=== PATIENT | female | born 1935 | race Caucasian/White ===

== ENCOUNTER 2017-06-08 19:00 | Emergency (ER) | payer MEDICARE, OTHER ==
[~2017-06-08] VITALS: Ht 160 cm; Wt 72.6 kg
[~2017-06-08 19:00] MED LIST: AMLODIPINE BESYL5 MG PO; BENAZEPRIL HCL40 MG PO; CELEXA 20 MG TA20 MG PO; CELEXA20 MG PO; DOXYCYCLINE 10100 MG PO; DYAZIDE 37.5-21 EACH; FISHOIL; HYDROCODON-ACE1 EAC7 PO; LEVAQUIN 500 M500 M2 PO; MEDROLDOSEPACK PO; MULTIVITAMINS PO; MULTIVITAMINS1 EAC7; NORVASC5 MG PO; PRAVACHOL40 MG PO; PREDNISONE 20 M20 M1 PO; PREDNISONE 5 MG5 MG PO; VENTOLIN HFA 1818 GM INH
[2017-06-08 19:54] LABS: ABSOLUTE BASOPHILS 0.1 thou/uL (0.0-0.2); ABSOLUTE EOSINOPHILS 0.1 thou/uL (0.0-0.7); ABSOLUTE LYMPHOCYTES 1.3 thou/uL (0.8-5.3); ABSOLUTE MONOCYTES 0.8 thou/uL (0.0-1.2); ABSOLUTE NEUTROPHILS 7.8 thou/uL (1.6-8.1); BASOPHILS 0.7 %; HEMATOCRIT 42.5 % (37.0-47.0); HEMOGLOBIN 13.8 gm/dL (12.0-15.0); MCH 26.5 pg (26.0-34.0); MCHC 32.5 g/dL (28.0-37.0); MCV 81.5 fL (80.0-100.0); MONOCYTES 7.6 %; MPV 9.1 fl. (7.2-11.1); NUCLEATED RBCS 0 /100WBC; PLATELET COUNT* 252 thou/uL (150-400); POLYS 77.7 %; RBC 5.22 mil/uL (4.20-5.00); RDW-CV 17.8 % (10.5-14.5)
[2017-06-08 20:04] LABS: CALCIUM 8.6 mg/dL (8.5-10.1); CREATININE 1.1 mg/dL (0.6-1.3); POTASSIUM 3.5 mmol/L (3.5-5.1)
[2017-06-08 20:20] LABS: ALBUMIN 3.7 g/dL (3.4-5.0); TOTAL BILIRUBIN 0.4 mg/dL (<0.1-1.0); TOTAL PROTEIN 7.3 g/dL (6.4-8.2)
[2017-06-08] MEDS ORDERED: PROAIR HFA8.5 GM INH (20:32)
[2017-06-08] MEDS ORDERED: PREDNISONE 20 M20 MG PO (20:32)
[2017-06-08] MEDS ORDERED: ZPAK PO (20:32)
[2017-06-08] MEDS ORDERED: AUGMENTIN 875-1 EACH PO (20:50)
[2017-06-08 21:10] VITALS: BP 156/86
--- NOTE | 2017-06-09 16:06 | EKG ---
[place] [address] ELECTROCARDIOGRAM REPORT Name: HELLENSMITA Room: 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 : 1935 Requested By: Citlaly Melendrez Order Number: [id number] MD: Asaf Nevarez Measurements Intervals [place] Rate: 102 P: 81 VT: 180 QRS: 18 QRSD: 91 T: 32 QT: 352 QTc: 459 Interpretive Statements Sinus tachycardia Compared to ECG 02/16/2016 19:37:55 Left ventricular hypertrophy no longer present Q waves no longer present Electronically Signed On 06-09-2017 16:06:40 CDT by Asaf Nevarez [email or web address] <ELECTRONICALLY SIGNED> By: Asaf Nevarez MD, [facility] 06/09/17 1606 33 33 Asaf Nevarez MD, FAC /EPI
== END 2017-06-08 21:10 | disposition left against medical advice (07) ==
LOC: M.ERS 19:00
PROVIDERS: Physician Assistant
DX: J18.9 Pneumonia, unspecified organism (principal); R09.02 Hypoxemia; I10 Essential (primary) hypertension; E78.00 Pure hypercholesterolemia, unspecified; Z90.710 Acquired absence of both cervix and uterus; Z87.891 Personal history of nicotine dependence

== ENCOUNTER 2019-10-08 15:01 | Emergency (ER) | payer MEDICARE, OTHER ==
[~2019-10-08] VITALS: Ht 157.5 cm; Wt 117.9 kg
[~2019-10-08 15:01] MED LIST changes: +AUGMENTIN 875-1 EACH PO; +PREDNISONE 20 M20 MG PO; +PROAIR HFA8.5 GM INH; +ZPAK PO
[2019-10-08 15:17] VITALS: BP 220/105
[2019-10-08] MEDS ORDERED: PRESERVISION A1 EAC2 PO (15:21)
[2019-10-08] MEDS ORDERED: BACTRIM DS TAB1 EACH PO (15:38)
[2019-10-08] MEDS ORDERED: AUGMENTIN 875-1 EACH PO (15:38)
== END 2019-10-08 15:59 | disposition home or self-care (01) ==
LOC: M.ERS 15:01
DX: L03.115 Cellulitis of right lower limb (principal); I10 Essential (primary) hypertension; E78.00 Pure hypercholesterolemia, unspecified; Z87.442 Personal history of urinary calculi; Z90.710 Acquired absence of both cervix and uterus

== ENCOUNTER 2019-10-29 15:55 | Inpatient (IN) | payer MEDICARE, OTHER ==
[~2019-10-29] VITALS: Ht 157.5 cm; Wt 111.1 kg
[~2019-10-29 15:55] MED LIST changes: +BACTRIM DS TAB1 EACH PO; +PRESERVISION A1 EAC2 PO
[2019-10-29 16:06] VITALS: BP 177/94
[2019-10-29 16:29] LABS: ABSOLUTE BASOPHILS 0.1 thou/uL (0.0-0.2); ABSOLUTE EOSINOPHILS 0.3 thou/uL (0.0-0.7); ABSOLUTE LYMPHOCYTES 1.1 thou/uL (0.8-5.3); ABSOLUTE MONOCYTES 0.7 thou/uL (0.0-1.2); ABSOLUTE NEUTROPHILS 9.4 thou/uL (1.6-8.1); BASOPHILS 0.5 %; EOSINOPHILS 2.8 %; HEMATOCRIT 38.5 % (37.0-47.0); HEMOGLOBIN 12.8 gm/dL (12.0-15.0); LYMPHOCYTES 9.9 %; MCH 26.9 pg (26.0-34.0); MCHC 33.3 g/dL (28.0-37.0); MCV 80.7 fL (80.0-100.0); MONOCYTES 6.1 %; MPV 8.4 fl. (7.2-11.1); NUCLEATED RBCS 0 /100WBC; PLATELET COUNT* 298 thou/uL (150-400); POLYS 80.7 %; RBC 4.77 mil/uL (4.20-5.00); RDW-CV 17.1 % (10.5-14.5); WBC 11.6 thou/uL (4.0-11.0)
[2019-10-29 16:38] LABS: CALCIUM 8.2 mg/dL (8.5-10.1); CREATININE 1.1 mg/dL (0.6-1.3); POTASSIUM 3.9 mmol/L (3.5-5.1)
[2019-10-29 16:51] LABS: ALBUMIN 3.5 g/dL (3.4-5.0); TOTAL BILIRUBIN 0.4 mg/dL (<0.1-1.0); TOTAL PROTEIN 7.3 g/dL (6.4-8.2)
[2019-10-29 17:00] VITALS: BP 181/73
[2019-10-29 17:17] VITALS: BP 168/77
[2019-10-29 17:18] LABS: URINE BILIRUBIN NEGATIVE (Negative); URINE BLOOD NEGATIVE (Negative); URINE CLARITY CLEAR; URINE COLOR STRAW; URINE GLUCOSE-RANDOM NEGATIVE (Negative); URINE KETONES NEGATIVE (Negative); URINE LEUKOCYTES-REFLEX NEGATIVE (Negative); URINE NITRITE-REFLEX NEGATIVE (Negative); URINE PROTEIN NEGATIVE (Negative); URINE UROBILINOGEN 0.2 E.U./dl (0.2-1.0)
[2019-10-29 18:47] LABS: CALCIUM 8.3 mg/dL (8.5-10.1); CREATININE 1.1 mg/dL (0.6-1.3); MAGNESIUM 1.7 mg/dL (1.8-2.4); POTASSIUM 3.8 mmol/L (3.5-5.1)
[2019-10-29 19:13] LABS: CHOLESTEROL 212 mg/dL (<200); HDL CHOLESTEROL 65 mg/dL (>40); LDL CHOLESTEROL 134 mg/dL (<100); TC:HDL 3.3 Ratio (Not establshd); TRIGLYCERIDE 69 mg/dL (<150); VLDL 14 mg/dL (<40)
[2019-10-29 19:14] LABS: SERUM ASSESSMENT CLEAR
[2019-10-29 20:00] VITALS: BP 118/78
[2019-10-30] VITALS (7 sets, daily range): BP systolic 113–170; BP diastolic 64–86
--- NOTE | 2019-10-30 10:56 | EKG ---
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 : 1935 Requested By: Joao Irving Order Number: [id number] MD: Refugio Taylor Measurements Intervals [place] Rate: 113 P: 81 [place]: 171 QRS: -4 QRSD: 89 T: 43 QT: 309 QTc: 424 Interpretive Statements Sinus tachycardia Atrial premature complex Minimal ST depression, lateral leads Compared to ECG 06/08/2017 19:34:54 Atrial premature complex(es) now present ST (T wave) deviation now present Electronically Signed On 10-30-2019 10:56:47 CDT by Refugio Taylor [email or web address] <ELECTRONICALLY SIGNED> By: Refugio Tayolr MD, FAC 10/30/19 1056 1608 1608 Refugio Taylor MD, [facility] /EPI
--- NOTE | 2019-10-30 11:12 | CON ---
[address] [address] CONSULTATION Name: SMITA MACEDO Room: [address] IN M.R.#: [id number] Admission: 10/29/19 Attend Phys: Andi Tamez Discharge: Date of : 37 Report #: [id number] THIS REPORT FOR: //name// cc: Lesley Henry MD, Pamela MD ~ THIS REPORT FOR: //name// CC: Lesley Walker DATE OF SERVICE: 10/30/2019 CARDIOLOGY CONSULTATION HISTORY OF PRESENT ILLNESS: The patient is an 84-year-old single white female who I was asked to see in the hospital today after she complained of right leg pain. The patient has no previous history of heart disease. She is not very active at this time because of her age and large size. She uses a walker. She has had no previous history of heart disease. She has had no previous cardiac evaluation. However, she denies a history of chest pain. She does get short of breath if she exerts herself. She has had no palpitation, syncope, history of heart murmur. She denies a history of swollen feet until the past 10 days. She noticed that her fleming on her right lower extremity was swollen and red. She denied any pain. She denied any trauma to the leg. She came to the Emergency Room last night and was found to have cellulitis. Cardiology consultation requested. She has had no fever, cough or bleeding. PAST MEDICAL HISTORY: She had a hysterectomy. She has a history of hypertension, but no history of diabetes. She has history of chronic kidney disease. CURRENT MEDICATIONS: At home consist of Lotensin. ALLERGIES: She has no known drug allergies. FAMILY HISTORY: Father of heart attack. SOCIAL HISTORY: She is , lives in a mobile home. She quit smoking 25 years ago. No alcohol abuse. REVIEW OF SYSTEMS: She is overweight, being 5 feet 1 inch, 160 pounds. No history of stroke, asthma or liver disease. She has chronic kidney disease. No cancer. No psychiatric illness. No chronic skin condition. PHYSICAL EXAMINATION: [place] [address] CONSULTATION Name: SMITA MACEDO Room: [address]#: [id number] Admission: 10/29/19 Attend Phys: Andi Tamez Discharge: Date of : 37 Report #: [id number] GENERAL: Revealed an elderly, overweight female lying in bed. She appeared in no distress. VITAL SIGNS: She had a blood pressure of 160/80, pulse is 100, she is afebrile. HEENT: She was anicteric. Conjunctivae are pink. Mucous members are moist. NECK: Veins difficult to assess due to obesity. No carotid bruits. CHEST: Clear to auscultation. CARDIOVASCULAR: Regular rate and rhythm, no murmur. ABDOMEN: Obese. EXTREMITIES: Had 1+ pitting edema up to the mid tibial area. It is worse on the right. There is erythema of the anterior right lower extremity. It was warm to touch, nontender. There appeared to be no drainage. LABORATORY DATA: Her workup after she came to the Emergency Room yesterday included an ECG that showed a sinus tachycardia, occasional PAC, nonspecific ST segment changes. Workup, potassium 3.8, BUN 33, creatinine 1.1, glucose 126. Her troponin 0.06. BNP 845. Cholesterol 212, triglycerides 69, HDL 65, LDL 134. TSH 3.1. Her white blood cell count 9.6, hematocrit 38.5. Her workup in the Emergency Room last night, she had a portable chest x-ray that showed calcified aorta, atelectasis, otherwise clear lung matias. IMPRESSION AND RECOMMENDATIONS: 1. Cellulitis. 2. Lower extremity edema. Suspect venous insufficiency. 3. Hypertension. The patient is on an ROD inhibitor. 4. Obesity. 5. Previous tobacco abuse. <ELECTRONICALLY SIGNED> By: Refugio Taylor MD, [facility] 10/30/19 1112 0946 [id number] Taylor MD, [facility] /nt
[2019-10-31] VITALS: BP 115/59
[2019-10-31 03:05] LABS: GLYCOHEMOGLOBIN (HGB A1C) 5.7 % (4.8-5.6)
[2019-10-31 04:00] VITALS: BP 129/63
[2019-10-31 04:35] LABS: HEMATOCRIT 38.9 % (37.0-47.0); HEMOGLOBIN 12.9 gm/dL (12.0-15.0); MCHC 33.2 g/dL (28.0-37.0); MCV 81.1 fL (80.0-100.0); MPV 8.6 fl. (7.2-11.1); RBC 4.8 mil/uL (4.20-5.00); RDW-CV 17.1 % (10.5-14.5); WBC 10.6 thou/uL (4.0-11.0)
[2019-10-31 04:58] LABS: ALBUMIN 3.3 g/dL (3.4-5.0); CALCIUM 8.1 mg/dL (8.5-10.1); CREATININE 1.6 mg/dL (0.6-1.3); POTASSIUM 3.4 mmol/L (3.5-5.1); TOTAL BILIRUBIN 0.5 mg/dL (<0.1-1.0); TOTAL PROTEIN 6.8 g/dL (6.4-8.2)
[2019-10-31 08:00] VITALS: BP 145/61
[2019-10-31 11:00] VITALS: BP 131/87
[2019-10-31 16:15] VITALS: BP 131/78
--- NOTE | 2019-10-31 16:32 | 2DMMODE ---
[place] [address] 2 D/M-MODE ECHOCARDIOGRAM Name: SMITA MACEDO Room: [address] IN [facility]#: [id number] Admission: 10/29/19 Attend Phys: Abdoulaye Walker Discharge: Date of : 37 Date of Service: 10/31/19 1632 Report #: [id number] THIS REPORT FOR: cc: Lesley Henry MD, Pamela MD [place], Michael J. MD [facility] ~ APPROVED REPORT Study performed: 10/31/2019 15:20:34 EXAM: Comprehensive 2D, Doppler, and color-flow Echocardiogram Patient Location: In-Patient Room #: [facility] Status: routine BSA: 2.08 HR: 72 bpm BP: 129/63 mmHg Rhythm: NSR Other Information Study Quality: Good Indications Congestive Heart Failure Dyspnea Hypertension/HDD 2D Dimensions IVSd: 12.05 (7-11mm) LVOT Diam: 20.32 (18-24mm) LVDd: 50.64 mm PWd: 10.39 (7-11mm) Ascending Ao: 39.03 (22-36mm) LVDs: 34.75 (25-40mm) Aortic Root: 29.47 mm Volumes Left Atrial Volume (Systole) LA ESV Index: 25.50 mL/m2 Aortic Valve AoV Peak Dheeraj.: 1.46 m/s AO Peak Gr.: 8.53 mmHg LVOT Max P.05 mmHg AO Mean Gr.: 5.35 mmHg LVOT Mean P.69 mmHg LVOT Max V: 0.87 m/s AO V2 VTI: 33.23 cm LVOT Mean V: 0.61 m/[place] [address] 2 D/M-MODE ECHOCARDIOGRAM Name: SMITA MACEDO Room: [address] IN M.R.#: [id number] Admission: 10/29/19 Attend Phys: Abdoulaye Walker Discharge: Date of : 37 Date of Service: 10/31/19 1632 Report #: [id number] TETE (VTI): 1.93 cm2 LVOT V1 VTI: 19.81 cm Mitral Valve E/A Ratio: 0.74 MV Decel. Time: 269.35 ms MV E Max Dheeraj.: 0.65 m/s MV PHT: 78.11 ms MVA (PHT): 2.82 cm2 TDI E/Lateral E': 8.13 E/Medial E': 6.50 Medial E' Dheeraj.: 0.10 m/s Lateral E' Dheeraj.: 0.08 m/s Pulmonary Valve PV Peak Dheeraj.: 0.77 m/s PV Peak Gr.: 2.39 mmHg Left Ventricle The left ventricle is normal size. There is normal LV segmental wall motion. There is normal left ventricular wall thickness. Left ventricular systolic function is normal. LVEF is 55-60%. Grade I - abnormal relaxation pattern. Right Ventricle The right ventricle is normal size. The right ventricular systolic function is normal. Atria The left atrium size is normal. The right atrium size is normal. Aortic Valve The aortic valve is normal in structure. No aortic regurgitation is present. There is no aortic valvular stenosis. Mitral Valve The mitral valve is normal in structure. Trace mitral regurgitation. No evidence of mitral valve stenosis. Tricuspid Valve The tricuspid valve is normal in structure. Unable to assess PA pressure. Trace tricuspid regurgitation. Pulmonic Valve The pulmonary valve is normal in structure. There is no pulmonic [place] [address] 2 D/M-MODE ECHOCARDIOGRAM Name: SMITA MACEDO Room: [address] IN [facility]#: [id number] Admission: 10/29/19 Attend Phys: Abdoulaye Walker Discharge: Date of : 37 Date of Service: 10/31/19 1632 Report #: [id number] Great Vessels The aortic root is normal in size. The ascending aorta is mildly dilated. (3.9 cm) IVC is normal in size and collapses >50% with inspiration. Pericardium There is no pericardial effusion. <Conclusion> The left ventricle is normal size. There is normal left ventricular wall thickness. Left ventricular systolic function is normal. LVEF is 55-60%. Grade I - abnormal relaxation pattern. There is normal LV segmental wall motion. Trace mitral regurgitation. Trace tricuspid regurgitation. IVC is normal in size and collapses >50% with inspiration. The ascending aorta is mildly dilated. (3.9 cm) <ELECTRONICALLY SIGNED> By: Hero Will MD, FACC 10/31/19 1632 163 1632 Hero Will MD, FACC /INF
[2019-10-31 20:00] VITALS: BP 151/93
[2019-11-01 00:26] VITALS: BP 143/74
[2019-11-01 05:31] LABS: CREATININE 1.3 mg/dL (0.6-1.3); MAGNESIUM 2.1 mg/dL (1.8-2.4); POTASSIUM 3.9 mmol/L (3.5-5.1)
[2019-11-01 08:00] VITALS: BP 143/80
[2019-11-01 08:52] VITALS: BP 143/80
[2019-11-01] MEDS ORDERED: KEFLEX500 M1 PO (10:20)
[2019-11-01] MEDS ORDERED: LACTOBACILLUS1 EACH PO (10:20)
--- NOTE | 2019-11-04 12:39 | CON ---
[address] [address] CONSULTATION Name: SMITA MACEDO Room: [address] IN .R.#: [id number] Admission: 10/29/19 Attend Phys: Andi Tamez Discharge: 11/01/19 Date of : 37 Report #: [id number] THIS REPORT FOR: //name// cc: Lesley Henry MD, Pamela MD ~ THIS REPORT FOR: //name// CC: Lesley Walker DATE OF SERVICE: 10/30/2019 INSTRUCTIONS: An 84-year-old white female who has been admitted to [facility] for a right lower leg cellulitis. HISTORY OF PRESENT ILLNESS: This is an 84-year-old white female who has had right leg pain and swelling for the last 10 days. She was on Augmentin before, did not improve. So she went to [place] [facility], was admitted and put on vancomycin. PAST MEDICAL HISTORY: Significant for hypertension, high cholesterol, macular degeneration, history of bronchitis, community-acquired pneumonia, emphysema with lungs hypoxia which is noted in the ER today.. CURRENT MEDICATIONS AT HOME: Augmentin, she was on Lotensin 40 mg daily. ALLERGIES: No known drug allergies. PAST SURGICAL HISTORY: Noncontributory. FAMILY HISTORY: Noncontributory. SOCIAL HISTORY: No history of tobacco, alcohol or drug use. She lives at home by herself. Please note that she was a tobacco user, greater than one year ago. PHYSICAL EXAMINATION: GENERAL: The patient is well-nourished, well-developed, morbidly obese. HEENT: PERRLA. NECK: Supple. No adenopathy. RESPIRATORY: Lungs already been worked up by the ER physician and the hospitalist. She has dyspnea on exertion and some shortness of breath with exertion. HEART: No chest pain, no palpitations noted. EXTREMITIES: Lower extremity exam shows her right leg has discoloration consistent with venous stasis and she has some small wounds discoloration, mostly in the posterior aspect of her leg with minimal to no drainage, [place] [address] CONSULTATION Name: SMITA MACEDO Room: [address] IN [facility]#: [id number] Admission: 10/29/19 Attend Phys: Andi Tamez Discharge: 11/01/19 Date of : 37 Report #: [id number] red in color as well. About 2+ pitting edema. The left leg is slightly swollen, but the right leg ____ more. She did have a venous Doppler that was negative. Her white blood cell was 11. She is not diabetic. IMPRESSION: Cellulitis, right leg, with venous stasis lymphedema. Plan is course of antibiotics will be continued. I did order an Unna boot or ____. I discussed with nurse about to apply it and to call with any questions or concerns. That can be changed in 3 days or earlier if they need to. For arterial Doppler, I ordered precautionary measures, especially when putting a compressive dressing, one make sure that the blood flow is adequate. I also talked about elevation, which is difficult because she is morbidly obese. Talked about consistent care and followup. I suggested she follow up with me as soon as leaves, here within 1 week. <ELECTRONICALLY SIGNED> By: Fritz Pa DPM 11/04/19 1239 1425 [id number] Pa DPM /nt
== END 2019-11-01 15:30 | disposition home health service (06) | DRG 871 ==
LOC: M.ERS 15:55 → M.2W 16:34 → M.TBA-ER 16:34 → M.2W 17:40
PROVIDERS: Internal Medicine; Internal Medicine Cardiovascular Disease; Physician Assistant; ADMIT Internal Medicine; ATTEND Internal Medicine
DX: A41.9 Sepsis, unspecified organism (principal); I50.33 Acute on chronic diastolic (congestive) heart failure; J96.20 Acute and chronic respiratory failure, unspecified whether with hypoxia or hypercapnia; L03.115 Cellulitis of right lower limb; I13.0 Hypertensive heart and chronic kidney disease with heart failure and stage 1 through stage 4 chronic kidney disease, or unspecified chronic kidney disease; Z68.41 Body mass index [BMI] 40.0-44.9, adult; E78.00 Pure hypercholesterolemia, unspecified; J43.9 Emphysema, unspecified; I87.8 Other specified disorders of veins; I89.0 Lymphedema, not elsewhere classified; E66.01 Morbid (severe) obesity due to excess calories; N18.3 Chronic kidney disease, stage 3 (moderate); Z20.828 Contact with and (suspected) exposure to other viral communicable diseases; B95.4 Other streptococcus as the cause of diseases classified elsewhere; I73.9 Peripheral vascular disease, unspecified; Z90.710 Acquired absence of both cervix and uterus; Z79.2 Long term (current) use of antibiotics; Z87.891 Personal history of nicotine dependence